=== PATIENT | male | born 1995 | race African-American/Black ===

== ENCOUNTER 2017-03-13 01:43 | Emergency (ER) | payer OTHER ==
[2017-03-13 01:53] VITALS: BP 128/80; PULSE 103; RESP 18; TEMP 98.8
[2017-03-13] MEDS ORDERED: ACETAMINOPHEN TAB 500 MG TAB PO STA (02:14)
[2017-03-13] MEDS ORDERED: IBUPROFEN 600 MG TAB PO STA (02:14)
--- NOTE | 2017-03-13 02:51 | XR ---
EXAM: XR Left Ribs and AP Chest, 3 or More Views CLINICAL HISTORY: Reason: Pain TECHNIQUE: Frontal and oblique views of the left ribs and frontal view of the chest. COMPARISON: No relevant prior studies available. FINDINGS: Lungs: Unremarkable. No consolidation. Pleural space: Unremarkable. No pneumothorax. Heart: Unremarkable. No cardiomegaly. Mediastinum: Unremarkable. Bones/joints: Unremarkable. No acute fracture. IMPRESSION: Normal left rib x-rays.
--- NOTE | 2017-03-13 02:55 | ED ---
Fall HPI - General Chief Complaint: Fall Stated Complaint: rib injury Time Seen by Provider: 03/13/17 01:54 Source: patient, RN notes reviewed, old records reviewed Mode of arrival: ambulatory - History of Present Illness Initial Comments: 21-year-old male presents emergency Department chief complaint of left rib pain after falling off a skateboard. Patient reports he has no other injuries. He reports that he landed on his left side on the cement. He denies any nausea or vomiting or abdominal pain. He reports it's worse whenever he is to take a deep breath. Patient reports is also some abrasions over his left ribs. - Related Data Previous Rx's Medication Instructions Recorded Acetaminophen Tab [Tylenol Tab] 500 mg PO Q4H #20 tablet 03/13/17 Ibuprofen [Motrin] 600 mg PO Q6HR PRN #20 tab 03/13/17 Allergies Allergy/AdvReac Type Severity Reaction Status Date / Time No Known Allergies Allergy Verified 05/23/16 02:15 Review of Systems ROS Statement: Those systems with pertinent positive or pertinent negative responses have been documented in the HPI. ROS Other: All systems not noted in ROS Statement are negative. Constitutional: Denies: fever, chills Eyes: Denies: eye pain ENT: Denies: ear pain Respiratory: Denies: cough, dyspnea Cardiovascular: Reports: other (chest wall pain). Denies: palpitations Endocrine: Denies: fatigue Gastrointestinal: Denies: abdominal pain, nausea, vomiting Musculoskeletal: Denies: back pain Skin: Reports: lesions (abrasion over chest wall). Denies: rash Neurological: Denies: headache Psychiatric: Denies: anxiety Past Medical History Past Medical History: No Reported History History of Any Multi-Drug Resistant Organisms: None Reported Past Surgical History: No Surgical Hx Reported Past Psychological History: No Psychological Hx Reported Smoking Status: Current every day smoker Past Alcohol Use History: None Reported Past Drug Use History: None Reported General Exam - General Exam Comments Initial Comments: Pleasant 21 year old male, no acute distress. Limitations: no limitations General appearance: alert, in no apparent distress Head exam: Present: atraumatic, normocephalic, normal inspection Eye exam: Present: normal appearance, PERRL, EOMI. Absent: scleral icterus, conjunctival injection, periorbital swelling ENT exam: Present: normal exam, mucous membranes moist Neck exam: Present: normal inspection. Absent: tenderness, meningismus, lymphadenopathy Respiratory exam: Present: normal lung sounds bilaterally, chest wall tenderness (left rib and chest wall tenderness. Patient has bruising over rib 7- 10. Patient has abrasion on chest wall. ). Absent: respiratory distress, wheezes, rales, rhonchi, stridor Cardiovascular Exam: Present: regular rate, normal rhythm, normal heart sounds. Absent: systolic murmur, diastolic murmur, rubs, gallop, clicks GI/Abdominal exam: Present: soft, normal bowel sounds. Absent: distended, tenderness, guarding, rebound, rigid Extremities exam: Present: normal inspection, full ROM, normal capillary refill. Absent: tenderness, pedal edema, joint swelling, calf tenderness Neurological exam: Present: alert, oriented X3, CN II-XII intact Psychiatric exam: Present: normal affect, normal mood Skin exam: Present: warm, dry, intact, normal color. Absent: rash Course Vital Signs 03/13/17 01:50 Temperature 98.8 F Pulse Rate 103 H Respiratory 18 Rate Blood Pressure 128/80 O2 Sat by Pulse 99 Oximetry Medical Decision Making - Medical Decision Making 21-year-old male presents emergency Department chief complaint of left rib pain after falling off a skateboard. Patient reports he has no other injuries. He reports that he landed on his left side on the cement. Patient does have bruising and abrasion over left rib 7-10. Patient given ICE pack, motrin and tyenol for the pain. CXR and rib xray arenormal, no fractures, pneumothorax, or other abnormalities. Patient will be discharged with Dx of rib contusion, written Rx for motrin and tylenol. Discussed importance of taking deep breaths as he does not want to develop a pneumonia. Return parameters discussed. - Radiology Data Radiology results: report reviewed Normal CXR, no rib fractures. Disposition Clinical Impression: Contusion of rib on left side Disposition: HOME SELF-CARE Condition: Good Instructions: Rib Contusion (ED) Additional Instructions: advised to apply ice over the area is much as possible. Patient is a take anti-inflammatory medications as directed. Patient should still try to take frequent deep breaths as you do not want to involve a pneumonia. Return to the emergency department if any alarming signs or symptoms occur. Prescriptions: Acetaminophen Tab [Tylenol Tab] 500 mg PO Q4H #20 tablet Ibuprofen [Motrin] 600 mg PO Q6HR PRN #20 tab PRN Reason: Pain Referrals: None,Stated [Primary Care Provider] - 1-2 days Lisha Forbes MD [STAFF PHYSICIAN] - 1-2 days Time of Disposition: 02:53
== END 2017-03-13 03:07 | disposition home or self-care (01) ==
LOC: EC 01:43
DX: S20.212A Contusion of left front wall of thorax, initial encounter (principal); F17.200 Nicotine dependence, unspecified, uncomplicated; V00.131A Fall from skateboard, initial encounter; Y93.51 Activity, roller skating (inline) and skateboarding
CPT/HCPCS: 99284